=== PATIENT | male | born 1985 | race Caucasian/White ===

== ENCOUNTER 2025-01-12 23:04 | Emergency (ER) | payer MEDICARE, SELFPAY ==
[2025-01-12 23:09] VITALS: BP 133/109; PULSE 112; TEMP 36.9; O2SAT 97; BMI 30.7
--- NOTE | 2025-01-12 23:22 | ED_ITS ---
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 Last drink this AM. At recovery center [facility] and had a seizure. Believes he bump the back of his head but is not sure. Does have pain of the back of his head. Denies neck pain. No extremity weakness. Denies other injury at this time Related Data Allergies Allergy/AdvReac Type Severity Reaction Status Date / Time No Known Drug Allergies Allergy Verified 01/12/25 23:17 Review of Systems ROS Status of ROS 10 or more systems reviewed and unremark able except as noted in history and below PFSH PFSH Social History Little interest or pleasure in doing things: not at all Feeling down, depressed, or hopeless: not at all Exam Constitutional Vital Signs, click to edit/add: Last Vital Signs Temp 98.5 F 01/12/25 23:09 Pulse 104 H 01/13/25 05:18 Resp 20 01/13/25 05:18 BP 150/110 H 01/13/25 05:18 Pulse Ox 100 01/13/25 05:18 O2 Del Method Room Air 01/13/25 05:18 Common normals: no apparent distress, average body habitus, oriented x3, no limitations, healthy appearing, alert and well nourished [facility] Common normals: normocephalic and head/scalp atraumatic Eye Common normals: PERRL, EOMs intact bilaterally and conjunctivae normal Respiratory Common normals: normal respiratory effort, no retractions, no use of accessory muscles and clear to auscultation bilaterally Cardio Common normals: regular rhythm, S1 normal heart sound and S2 normal heart sound Rate: tachycardic GI Common normals: Normal to inspection, nondistended, normoactive bowel sounds present, soft to palpation and non-tender Extremity Common normals: normal to inspection and full ROM Neuro Common normals: oriented x3, CN's II-XII intact bilaterally, moves all extremities and no focal motor deficits Psych Appearance: grossly normal Course Vital Signs Vital signs: Vital Signs Temperature 98.5 F 01/12/25 23:09 Pulse Rate 112 H 01/12/25 23:09 Respiratory Rate 20 01/12/25 23:09 Blood Pressure 133/109 H 01/12/25 23:09 Pulse Oximetry 97 01/12/25 23:09 Oxygen Delivery Method Room Air 01/12/25 23:09 Temperature 98.5 F 01/12/25 23:09 Pulse Rate 104 H 01/13/25 05:18 Respiratory Rate 20 01/13/25 05:18 Blood Pressure 150/110 H 01/13/25 05:18 Pulse Oximetry 100 01/13/25 05:18 Oxygen Delivery Method Room Air 01/13/25 05:18 MDM - Seizure MDM Narrative Medical decision making narrative: alcoholic presents from detox center after reported seizure and head injury. Arrives asymptomatic except for complaint of occipital headache where he believes he struck his head during the seizure. Exam of his head without obvious trauma. Patient treated with valium IV and labs ordered as well as CTs of brain and C-spine. Urine drug screen neg. Alcohol level 246. Patient remains stable during time in the department. Discharged back to detox center to manage his a lcohol abuse and detox Lab Data Labs: Lab Results 01/12/25 01/12/25 Range/Units 23:45 23:56 WBC 5.0 (4.0-11.0) 10^3/uL RBC 3.28 L (4.70-6.10) 10^6/uL Hgb 12.0 L (14.0-18.0) g/dL Hct 34.1 L (42.0-54.0) % MCV 104.0 H (80.0-94.0) fL MCH 36.6 H (25.9-34.0) pg MCHC 35.2 (29.9-35.2) g/dL RDW 20.5 H (11.0-15.0) % Plt Count 200 (150-450) 10^3/uL MPV 8.5 L (9.5-13.5) fL Neut % (Auto) 60.3 (43.0-75.0) % Lymph % (Auto) 30.7 (20.5-60.0) % [place] % (Auto) 7.2 (1.7-12.0) % Eos % (Auto) 0.4 L (0.9-7.0) % Baso % (Auto) 0.8 (0.2-2.0) % Neut # (Auto) 3.0 (1.4-6.5) 10^3/uL Lymph # (Auto) 1.5 (1.2-3.8) 10^3/uL [place] # (Auto) 0.4 (0.3-0.8) 10^3/uL Eos # (Auto) 0.0 (0.0-0.7) 10^3/uL Baso # (Auto) 0.0 (0.0-0.1) 10^3/uL Abs Immat Gran (auto) 0.03 (0.00-0.03) 10^3/uL Imm/Tot Granulo (auto) 0.6 H (0.0-0.5) % PT 10.7 (9.0-11.6) sec INR 1.01 Sodium 143 (136-145) mmol/L Potassium 3.8 (3.5-5.1) mmol/L Chloride 106 (98-107) mmol/L Carbon Dioxide 28.1 (21.0-32.0) mmol/L Anion Gap 12.7 BUN 7.0 (7.0-18.0) mg/dL Creatinine 0.84 (0.70-1.30) mg/dL Est GFR ( Amer) >60 (>=60 mL/min/1.73m^2) Est GFR (Non-Af Amer) >60 (>=60 mL/min/1.73m^2) BUN/Creatinine Ratio 8.3 Glucose 101 (74-106) mg/dL Calcium 9.0 (8.5-10.1) mg/dL Magnesium 1.6 L (1.8-2.4) mg/dL Total Bilirubin 0.3 (0.2-1.0) mg/dL AST 46 H (15-37) U/L ALT 46 (16-63) U/L Alkaline Phosphatase 165 H (46-116) U/L Total Protein 6.9 (6.4-8.2) g/dL Albumin 3.3 L (3.4-5.0) g/dL Globulin 3.6 g/dL Albumin/Globulin Ratio 0.9 Urine Opiates Screen Negative (NEGATIVE) Ur Buprenorphine Scrn Negative (NEGATIVE) Ur Oxycodone Screen Negative (NEGATIVE) Urine Methadone Screen Negative (NEGATIVE) Ur Barbiturates Screen Negative (NEGATIVE) U Tricyclic Antidepress Negative (NEGATIVE) Ur Phencyclidine Scrn Negative (NEGATIVE) Ur Amphetamines Screen Negative (NEGATIVE) U Methamphetamines Scrn Negative (NEGATIVE) U Benzodiazepines Scrn Negative (NEGATIVE) Urine Cocaine Screen Negative (NEGATIVE) U Cannabinoids Screen Negative (NEGATIVE) Ethanol Quant 246 mg/dL Discharge Plan Discharge Chief Complaint: Seizure Clinical Impression: Minor closed head injury, Alcohol withdrawal seizure, Alcohol intoxication Patient Disposition: Home, Self-Care Print Language: Polish Instructions: Head Injury (ED), Abuse of Alcohol (ED), Alcohol Withdrawal (ED) Referrals: Physician,Non-Staff, MD [Primary Care Provider] - 1 week Discharge Date/Time: 01/13/25 05:20
--- OUTSIDE RECORDS SUMMARY | 2025-01-12 23:31 | XMS_ITS | Continuity of Care Document ---
Author Organization [facility] Address [address] [address] Phone [phone] Care Team Providers Care Business Integration Manager Name Role Phone Etelvina Campos MD Primary Care Physician Nabil perry
[2025-01-12] MEDS: DIAZEPAM 10 MG/2 ML SYRINGE 5 MG IV (23:55)
[2025-01-12] MEDS: 0.9 % SODIUM CHLORIDE 1,000 ML 999 ML IV (23:56)
[2025-01-13 00:06] LABS: Basophils Percent Auto 0.8 % (0.2-2.0); Eosinophils Percent Auto 0.4 % (0.9-7.0); Hematocrit 34.1 % (42.0-54.0); Immature Granulocytes Abs Auto 0.03 10^3/uL (0.00-0.03); Immature Granulocytes Pct Auto 0.6 % (0.0-0.5); Lymphocytes Absolute Auto 1.5 10^3/uL (1.2-3.8); Lymphocytes Percent Auto 30.7 % (20.5-60.0); Mean Corpuscular HGB Conc 35.2 g/dL (29.9-35.2); Mean Corpuscular Hemoglobin 36.6 pg (25.9-34.0); Mean Platelet Volume 8.5 fL (9.5-13.5); Monocytes Absolute Auto 0.4 10^3/uL (0.3-0.8); Monocytes Percent Auto 7.2 % (1.7-12.0); Neutrophils Percent Auto 60.3 % (43.0-75.0); Platelet Count 200 10^3/uL (150-450); Red Blood Count 3.28 10^6/uL (4.70-6.10); Red Cell Distribution Width 20.5 % (11.0-15.0)
[2025-01-13 00:16] LABS: Amphetamine Screen Urine NEGATIVE (NEGATIVE); Barbiturates Screen Urine NEGATIVE (NEGATIVE); Benzodiazepines Screen Urine NEGATIVE (NEGATIVE); Cannabinoid Screen Urine NEGATIVE (NEGATIVE); Cocaine Screen Urine NEGATIVE (NEGATIVE); Methadone Screen Urine NEGATIVE (NEGATIVE); Methamphetamines Screen Urine NEGATIVE (NEGATIVE); Opiate Screen Urine NEGATIVE (NEGATIVE); Phencyclidine Screen Urine NEGATIVE (NEGATIVE); Tricyclic Antidepressant Urine NEGATIVE (NEGATIVE)
[2025-01-13 00:17] LABS: Buprenorphine Screen Urine NEGATIVE (NEGATIVE); Oxycodone Screen Urine NEGATIVE (NEGATIVE)
[2025-01-13 00:22] LABS: Alanine Aminotransferase 46 U/L (16-63); Albumin Globulin Ratio 0.9; Albumin Level 3.3 g/dL (3.4-5.0); Alkaline Phosphatase 165 U/L (46-116); Anion Gap 12.7; Aspartate Amino Transferase 46 U/L (15-37); BUN Creatinine Ratio 8.3; Bilirubin Total 0.3 mg/dL (0.2-1.0); Carbon Dioxide 28.1 mmol/L (21.0-32.0); Chloride 106 mmol/L (98-107); Estimated GFR (African America >60 (>=60 mL/min/1.73m^2); Estimated GFR (Non-African Ame >60 (>=60 mL/min/1.73m^2); Ethanol 246 mg/dL; Globulin 3.6 g/dL; Glucose 101 mg/dL (74-106); Magnesium 1.6 mg/dL (1.8-2.4); Potassium 3.8 mmol/L (3.5-5.1); Sodium 143 mmol/L (136-145); Total Protein 6.9 g/dL (6.4-8.2)
[2025-01-13 00:24] LABS: INR 1.01; Prothrombin Time 10.7 sec (9.0-11.6)
[2025-01-13 01:33] VITALS: BP 150/110; PULSE 103; O2SAT 98
--- NOTE | 2025-01-13 02:59 | PC.NURSE ---
seizure pads are on the cart for patients safety
[2025-01-13 03:03] VITALS: PULSE 83; O2SAT 96
[2025-01-13] MEDS: LORAZEPAM 1 MG TABLET PO (04:50)
[2025-01-13 05:18] VITALS: BP 150/110; PULSE 104; O2SAT 100
== END 2025-01-13 05:20 | disposition home or self-care (01) ==
PROVIDERS: Emergency Provider Internal Medicine
DX: S09.8XXA Other specified injuries of head, initial encounter (principal); G40.89 Other seizures; W19.XXXA Unspecified fall, initial encounter; F10.239 Alcohol dependence with withdrawal, unspecified; Y90.8 Blood alcohol level of 240 mg/100 ml or more
CPT/HCPCS: 36415; 70450; 72125; 80053; 80307; 80320; 83735; 85025; 85610; 96374; 99285; J3360